=== PATIENT | female | born 1995 | race Caucasian/White ===

== ENCOUNTER → 2016-10-06 | Outpatient (REF) | payer OTHER | LOC: M LAB REF 16:15 | PROVIDERS: ATTEND Physician Assistant | DX: J01.10 Acute frontal sinusitis, unspecified (principal); J02.9 Acute pharyngitis, unspecified ==

== ENCOUNTER → 2018-04-18 | Outpatient (REF) | payer OTHER ==
[2018-04-18 14:17] LABS: BASO # 0.1 10^3/uL (0.0-0.2); BASO % 1.1 % (0.0-1.0); EOS # 0.1 10^3/uL (0.0-0.50); EOS % 2.6 % (0.0-3.0); HEMATOCRIT 40.2 % (36.0-47.0); HEMOGLOBIN 13.3 g/dl (12.0-15.5); LYMPH # 1.9 10^3/uL (1.5-6.5); LYMPH % 41.4 % (24.0-44.0); MEAN CORPUSCULAR HEMOGLOBIN 29.5 pg (27.0-33.0); MEAN CORPUSCULAR HGB CONC 33.1 g/dl (32.0-36.5); MEAN CORPUSCULAR VOLUME 89.1 fl (80.0-96.0); MONO # 0.4 10^3/uL (0.0-0.8); MONO % 9.6 % (0.0-5.0); NEUTROPHILS # 2.1 10^3/uL (1.8-7.7); NEUTROPHILS % 45.3 % (36.0-66.0); PLATELET COUNT, AUTOMATED 180 10^3/uL (150-450); RED BLOOD COUNT 4.51 10^6/uL (4.00-5.40); WHITE BLOOD COUNT 4.6 10^3/uL (4.0-10.0)
[2018-04-18 15:20] LABS: ALT/SGPT 19 U/L (12-78); BILIRUBIN,TOTAL 0.4 MG/DL (0.2-1.0); BLOOD UREA NITROGEN 13 MG/DL (7-18); CARBON DIOXIDE LEVEL 23 MEQ/L (21-32); CHLORIDE LEVEL 107 MEQ/L (98-107); CHOLESTEROL LEVEL 156 MG/DL (<200); CREATININE FOR GFR 0.94 MG/DL (0.55-1.30); FREE T4 0.97 NG/DL (0.76-1.46); GLOMERULAR FILTRATION RATE > 60.0 (>60); GLUCOSE, FASTING 88 MG/DL (70-100); HDL CHOLESTEROL 60 MG/DL (>40); LDL CHOLESTEROL 89 MG/DL (<100); NON-HDL-C 96 MG/DL; POTASSIUM SERUM 4.4 MEQ/L (3.5-5.1); SODIUM LEVEL 140 MEQ/L (136-145); TOTAL 25(OH) VITAMIN D 17.4 NG/ML (30.0-100.0); TOTAL PROTEIN 7.6 GM/DL (6.4-8.2); TRIGLYCERIDES LEVEL 37 MG/DL (<150)
== END ==
LOC: M SFHCSACK 10:42
PROVIDERS: ATTEND Physician Assistant
DX: J45.909 Unspecified asthma, uncomplicated (principal); Z13.220 Encounter for screening for lipoid disorders; Z13.29 Encounter for screening for other suspected endocrine disorder; Z13.21 Encounter for screening for nutritional disorder

== ENCOUNTER → 2018-05-09 | Outpatient (REF) | payer OTHER | LOC: M SFHCWAGY 10:01 | DX: Z12.4 Encounter for screening for malignant neoplasm of cervix (principal) ==

== ENCOUNTER → 2018-08-31 | Outpatient (REF) | payer OTHER ==
[2018-08-31 14:44] LABS: BASO # 0.1 10^3/uL (0.0-0.2); BASO % 0.9 % (0.0-1.0); EOS # 0.2 10^3/uL (0.0-0.50); HEMATOCRIT 39.6 % (36.0-47.0); HEMOGLOBIN 13.1 g/dl (12.0-15.5); LYMPH % 36.9 % (24.0-44.0); MEAN CORPUSCULAR HEMOGLOBIN 29.5 pg (27.0-33.0); MEAN CORPUSCULAR HGB CONC 33.1 g/dl (32.0-36.5); MEAN CORPUSCULAR VOLUME 89.2 fl (80.0-96.0); MONO # 0.5 10^3/uL (0.0-0.8); MONO % 9.8 % (0.0-5.0); NEUTROPHILS # 2.6 10^3/uL (1.8-7.7); NEUTROPHILS % 49.2 % (36.0-66.0); PLATELET COUNT, AUTOMATED 178 10^3/uL (150-450); RED BLOOD COUNT 4.44 10^6/uL (4.00-5.40); WHITE BLOOD COUNT 5.3 10^3/uL (4.0-10.0)
[2018-08-31 14:47] LABS: ALT/SGPT 26 U/L (12-78); BILIRUBIN,TOTAL 0.4 MG/DL (0.2-1.0); BLOOD UREA NITROGEN 12 MG/DL (7-18); CALCIUM LEVEL 8.3 MG/DL (8.5-10.1); CARBON DIOXIDE LEVEL 26 MEQ/L (21-32); CHLORIDE LEVEL 106 MEQ/L (98-107); CREATININE FOR GFR 0.87 MG/DL (0.55-1.30); GLOMERULAR FILTRATION RATE > 60.0 (>60); GLUCOSE, FASTING 81 MG/DL (70-100); POTASSIUM SERUM 4.4 MEQ/L (3.5-5.1); SODIUM LEVEL 139 MEQ/L (136-145); TOTAL PROTEIN 7.4 GM/DL (6.4-8.2)
== END ==
LOC: M SFHCSACK 09:44
PROVIDERS: ATTEND Physician Assistant
DX: E55.9 Vitamin D deficiency, unspecified (principal)

== ENCOUNTER → 2020-03-25 | Outpatient (CLI) | payer OTHER, SELFPAY ==
[2020-03-25 13:52] LABS: ALBUMIN 3.9 GM/DL (3.2-5.2); ALT/SGPT 17 U/L (12-78); BILIRUBIN,TOTAL 0.4 MG/DL (0.2-1.0); BLOOD UREA NITROGEN 9 MG/DL (7-18); CARBON DIOXIDE LEVEL 29 MEQ/L (21-32); CHLORIDE LEVEL 106 MEQ/L (98-107); CHOLESTEROL LEVEL 142 MG/DL (<200); CHOLESTEROL RISK RATIO 2.253 (<5); CREATININE FOR GFR 0.86 MG/DL (0.55-1.30); GLOMERULAR FILTRATION RATE > 60.0 (>60); GLUCOSE, FASTING 81 MG/DL (70-100); HDL CHOLESTEROL 63 MG/DL (>40); LDL CHOLESTEROL 72 MG/DL (<100); NON-HDL-C 79 MG/DL; SODIUM LEVEL 138 MEQ/L (136-145); TOTAL PROTEIN 7.3 GM/DL (6.4-8.2); TRIGLYCERIDES LEVEL 35 MG/DL (<150)
[2020-03-25 13:56] LABS: TOTAL 25(OH) VITAMIN D 58.6 NG/ML (30.0-100.0)
== END ==
LOC: M PLALAB 10:55
PROVIDERS: ATTEND Physician Assistant
DX: Z00.00 Encounter for general adult medical examination without abnormal findings (principal); E55.9 Vitamin D deficiency, unspecified; Z13.220 Encounter for screening for lipoid disorders

== ENCOUNTER → 2021-10-27 | Outpatient (CLI) | payer OTHER ==
[2021-10-27 13:32] LABS: HEMOGLOBIN A1c 5.2 %
[2021-10-27 13:44] LABS: BASO # 0.1 10^3/uL (0.0-0.2); BASO % 1.1 % (0.0-1.0); EOS # 0.1 10^3/uL (0.0-0.5); EOS % 2.9 % (0.0-3.0); HEMATOCRIT 39.4 % (36.0-47.0); HEMOGLOBIN 12.6 g/dl (12.0-15.5); LYMPH % 43.3 % (24.0-44.0); MEAN CORPUSCULAR HEMOGLOBIN 29.6 pg (27.0-33.0); MEAN CORPUSCULAR VOLUME 92.7 fl (80.0-96.0); MONO # 0.5 10^3/uL (0.0-0.8); MONO % 11.6 % (2.0-8.0); NEUTROPHILS # 1.9 10^3/uL (1.5-8.5); NEUTROPHILS % 40.9 % (36.0-66.0); PLATELET COUNT, AUTOMATED 183 10^3/uL (150-450); RED BLOOD COUNT 4.25 10^6/uL (4.00-5.40); WHITE BLOOD COUNT 4.6 10^3/uL (4.0-10.0)
[2021-10-27 14:04] LABS: ALBUMIN 3.8 GM/DL (3.2-5.2); ALT/SGPT 16 U/L (12-78); BILIRUBIN,TOTAL 0.3 MG/DL (0.2-1.0); BLOOD UREA NITROGEN 12 MG/DL (7-18); CARBON DIOXIDE LEVEL 27 MEQ/L (21-32); CHLORIDE LEVEL 109 MEQ/L (98-107); CHOLESTEROL LEVEL 141 MG/DL (<200); CHOLESTEROL RISK RATIO 2.274 (<5); CREATININE FOR GFR 0.83 MG/DL (0.55-1.30); FREE T4 0.99 NG/DL (0.76-1.46); GLOMERULAR FILTRATION RATE > 60.0 (>60); GLUCOSE, FASTING 81 MG/DL (70-100); HDL CHOLESTEROL 62 MG/DL (>40); LDL CHOLESTEROL 73 MG/DL (<100); NON-HDL-C 79 MG/DL; POTASSIUM SERUM 4.5 MEQ/L (3.5-5.1); SODIUM LEVEL 141 MEQ/L (136-145); TOTAL 25(OH) VITAMIN D 39.2 NG/ML (30.0-100.0); TOTAL PROTEIN 7.1 GM/DL (6.4-8.2); TRIGLYCERIDES LEVEL 31 MG/DL (<150)
== END ==
LOC: M PLALAB 09:39
PROVIDERS: ATTEND Physician Assistant Medical
DX: E55.9 Vitamin D deficiency, unspecified (principal)

== ENCOUNTER → 2022-05-07 | Outpatient (CLI) | payer OTHER ==
[2022-05-07 15:13] LABS: BASO % 0.7 % (0.0-1.0); EOS # 0.3 10^3/uL (0.0-0.5); EOS % 4.3 % (0.0-3.0); HEMOGLOBIN 12.4 g/dl (12.0-15.5); LYMPH # 1.9 10^3/uL (1.5-5.0); LYMPH % 32.3 % (24.0-44.0); MEAN CORPUSCULAR HEMOGLOBIN 28.8 pg (27.0-33.0); MEAN CORPUSCULAR HGB CONC 31.8 g/dl (32.0-36.5); MEAN CORPUSCULAR VOLUME 90.5 fl (80.0-96.0); MONO # 0.8 10^3/uL (0.0-0.8); MONO % 13.1 % (2.0-8.0); NEUTROPHILS # 2.9 10^3/uL (1.5-8.5); NEUTROPHILS % 49.3 % (36.0-66.0); PLATELET COUNT, AUTOMATED 200 10^3/uL (150-450); RED BLOOD COUNT 4.31 10^6/uL (4.00-5.40); WHITE BLOOD COUNT 5.9 10^3/uL (4.0-10.0)
[2022-05-07 16:48] LABS: ERYTHROCYTE SEDIMENTATION RATE 9 mm/hr (0-20)
== END ==
LOC: M PLALAB 09:44
PROVIDERS: ATTEND Physician Assistant Medical
DX: R05.3 Chronic cough (principal)

== ENCOUNTER → 2022-05-26 | Outpatient (REF) | payer OTHER | LOC: M PLALAB 14:49 | PROVIDERS: ATTEND Obstetrics & Gynecology | DX: Z01.419 Encounter for gynecological examination (general) (routine) without abnormal findings (principal) ==

== ENCOUNTER → 2022-08-24 | Outpatient (CLI) | payer OTHER ==
[2022-08-24 14:01] LABS: CALCIUM LEVEL 8.7 MG/DL (8.5-10.1)
[2022-08-24 14:05] LABS: PTH INTACT 69.4 PG/ML (18.5-88.0); TOTAL 25(OH) VITAMIN D 22.5 NG/ML (20.0-100.0)
== END ==
LOC: M PLALAB 11:10
PROVIDERS: ATTEND Physician Assistant Medical
DX: E55.9 Vitamin D deficiency, unspecified (principal)

== ENCOUNTER → 2022-11-16 | Outpatient (CLI) | payer OTHER ==
[2022-11-16 10:58] LABS: BASO # 0.1 10^3/uL (0.0-0.2); EOS # 0.2 10^3/uL (0.0-0.5); EOS % 3.1 % (0.0-3.0); HEMATOCRIT 37.2 % (36.0-47.0); HEMOGLOBIN 12.1 g/dl (12.0-15.5); LYMPH # 2.6 10^3/uL (1.5-5.0); LYMPH % 42.6 % (24.0-44.0); MEAN CORPUSCULAR HEMOGLOBIN 29.3 pg (27.0-33.0); MEAN CORPUSCULAR HGB CONC 32.5 g/dl (32.0-36.5); MEAN CORPUSCULAR VOLUME 90.1 fl (80.0-96.0); MONO # 0.6 10^3/uL (0.0-0.8); NEUTROPHILS # 2.7 10^3/uL (1.5-8.5); NEUTROPHILS % 43.1 % (36.0-66.0); PLATELET COUNT, AUTOMATED 171 10^3/uL (150-450); RED BLOOD COUNT 4.13 10^6/uL (4.00-5.40); WHITE BLOOD COUNT 6.1 10^3/uL (4.0-10.0)
[2022-11-16 11:40] LABS: HEMOGLOBIN A1c 4.9 % (4.0-6.0)
[2022-11-16 11:46] LABS: ALBUMIN 3.6 G/DL (3.2-5.2); ALKALINE PHOSPHATASE 41 U/L (46-116); ALT/SGPT 31 U/L (7.0-40); AST/SGOT 23 U/L (<34); BILIRUBIN,TOTAL 0.8 MG/DL (0.3-1.2); BLOOD UREA NITROGEN 12 MG/DL (9-23); CALCIUM LEVEL 8.6 MG/DL (8.5-10.1); CARBON DIOXIDE LEVEL 24 MMOL/L (20-31); CHLORIDE LEVEL 108 MMOL/L (98-107); CHOLESTEROL LEVEL 145 MG/DL (<200); CHOLESTEROL RISK RATIO 2.92 (<5); CREATININE FOR GFR 0.86 MG/DL (0.55-1.30); GLOMERULAR FILTRATION RATE > 60.0 (>60); GLUCOSE, FASTING 75 MG/DL (60-100); HDL CHOLESTEROL 49.5 MG/DL (>40); LDL CHOLESTEROL 86.9 MG/DL (<100); NON-HDL-C 95.5 MG/DL; PTH INTACT 53.1 PG/ML (18.5-88.0); SODIUM LEVEL 136 MMOL/L (136-145); TOTAL PROTEIN 6.5 G/DL (5.7-8.2); TRIGLYCERIDES LEVEL 43 MG/DL (<150)
== END ==
LOC: M PLALAB 07:27
PROVIDERS: ATTEND Physician Assistant Medical
DX: E55.9 Vitamin D deficiency, unspecified (principal)

== ENCOUNTER → 2022-11-20 | Outpatient (REF) | payer OTHER | LOC: M SFHCPLAZ 11:22 | PROVIDERS: ATTEND Physician Assistant Medical | DX: Z53.9 Procedure and treatment not carried out, unspecified reason (principal); E55.9 Vitamin D deficiency, unspecified ==

== ENCOUNTER → 2023-01-21 | Outpatient (CLI) | payer OTHER ==
[2023-01-21 11:04] LABS: BASO # 0.1 10^3/uL (0.0-0.2); BASO % 1.3 % (0.0-1.0); EOS # 0.2 10^3/uL (0.0-0.5); EOS % 3.4 % (0.0-3.0); HEMATOCRIT 40.2 % (36.0-47.0); LYMPH % 41.4 % (24.0-44.0); MEAN CORPUSCULAR HEMOGLOBIN 29.3 pg (27.0-33.0); MEAN CORPUSCULAR HGB CONC 32.3 g/dl (32.0-36.5); MEAN CORPUSCULAR VOLUME 90.7 fl (80.0-96.0); MONO # 0.5 10^3/uL (0.0-0.8); MONO % 10.7 % (2.0-8.0); NEUTROPHILS # 2.1 10^3/uL (1.5-8.5); PLATELET COUNT, AUTOMATED 171 10^3/uL (150-450); RED BLOOD COUNT 4.43 10^6/uL (4.00-5.40); WHITE BLOOD COUNT 4.8 10^3/uL (4.0-10.0)
[2023-01-21 11:29] LABS: FERRITIN 11.3 NG/ML (7.3-270.7)
[2023-01-22 14:09] LABS: H PYLORI SERUM QUANT IGM <9.0 units (0.0-8.9); H PYLORI SERUM QUANT IgG ABY 0.26 (0.00-0.79)
== END ==
LOC: M PLALAB 08:50
PROVIDERS: ATTEND Physician Assistant Medical
DX: R71.0 Precipitous drop in hematocrit (principal)

== ENCOUNTER → 2023-05-17 | Outpatient (CLI) | payer OTHER ==
[2023-05-17 14:15] LABS: CALCIUM LEVEL 8.8 MG/DL (8.5-10.1)
[2023-05-17 14:18] LABS: PTH INTACT 35.1 PG/ML (18.5-88.0)
[2023-05-17 14:20] LABS: TOTAL 25(OH) VITAMIN D 65.3 NG/ML (20.0-100.0)
== END ==
LOC: M PLALAB 10:17
PROVIDERS: ATTEND Physician Assistant Medical
DX: E55.9 Vitamin D deficiency, unspecified (principal)

== ENCOUNTER → 2023-05-24 | Outpatient (CLI) | payer OTHER ==
[2023-05-24 16:56] LABS: BASO # 0.1 10^3/uL (0.0-0.2); BASO % 1.2 % (0.0-1.0); EOS # 0.2 10^3/uL (0.0-0.5); EOS % 4.6 % (0.0-3.0); HEMATOCRIT 38.9 % (36.0-47.0); HEMOGLOBIN 12.6 g/dl (12.0-15.5); LYMPH # 2.1 10^3/uL (1.5-5.0); LYMPH % 49.4 % (24.0-44.0); MEAN CORPUSCULAR HEMOGLOBIN 29.5 pg (27.0-33.0); MEAN CORPUSCULAR HGB CONC 32.4 g/dl (32.0-36.5); MEAN CORPUSCULAR VOLUME 91.1 fl (80.0-96.0); MONO # 0.4 10^3/uL (0.0-0.8); MONO % 8.1 % (2.0-8.0); NEUTROPHILS # 1.6 10^3/uL (1.5-8.5); NEUTROPHILS % 36.5 % (36.0-66.0); PLATELET COUNT, AUTOMATED 172 10^3/uL (150-450); RED BLOOD COUNT 4.27 10^6/uL (4.00-5.40); WHITE BLOOD COUNT 4.3 10^3/uL (4.0-10.0)
[2023-05-24 17:03] LABS: FERRITIN 7.9 NG/ML (7.3-270.7)
== END ==
LOC: M PLALAB 12:22
PROVIDERS: ATTEND Physician Assistant Medical
DX: E61.1 Iron deficiency (principal)

== ENCOUNTER → 2024-05-15 | Outpatient (CLI) | payer BC ==
[2024-05-15 18:24] LABS: HEMOGLOBIN 12.1 g/dl (12.0-15.5); MEAN CORPUSCULAR HEMOGLOBIN 29.6 pg (27.0-33.0); MEAN CORPUSCULAR HGB CONC 33.6 g/dl (32.0-36.5); PLATELET COUNT, AUTOMATED 179 10^3/uL (150-450); RED BLOOD COUNT 4.09 10^6/uL (4.00-5.40); WHITE BLOOD COUNT 9.4 10^3/uL (4.0-10.0)
[2024-05-15 19:12] LABS: HIV 1&2 SCREEN NEGATIVE (NEGATIVE)
[2024-05-15 19:21] LABS: HEPATITIS C VIRUS ABY INDEX 0.02 INDEX (<0.8)
== END ==
LOC: M PLALAB 15:16
PROVIDERS: ATTEND Nurse Practitioner Family
DX: Z34.01 Encounter for supervision of normal first pregnancy, first trimester (principal)

== ENCOUNTER → 2024-05-15 | Outpatient (REF) | payer BC ==
[2024-05-15 21:48] LABS: GC DNA AMPLIFICATION NEGATIVE (NEGATIVE)
== END ==
LOC: M PLALAB 16:06
PROVIDERS: ATTEND Nurse Practitioner Family
DX: Z34.01 Encounter for supervision of normal first pregnancy, first trimester (principal)

== ENCOUNTER → 2024-05-31 | Outpatient (CLI) | payer BC ==
[2024-05-31 19:07] LABS: FERRITIN 26.5 NG/ML (7.3-270.7)
== END ==
LOC: M PLALAB 16:09
PROVIDERS: ATTEND Physician Assistant Medical
DX: Z36.89 Encounter for other specified antenatal screening (principal); Z3A.12 12 weeks gestation of pregnancy

== ENCOUNTER → 2024-07-27 | Outpatient (CLI) | payer BC | LOC: M WHC 14:43 | PROVIDERS: ATTEND Nurse Practitioner Family | DX: Z34.02 Encounter for supervision of normal first pregnancy, second trimester (principal) ==

== ENCOUNTER → 2024-09-01 | Outpatient (CLI) | payer BC | LOC: M WHC 14:48 | PROVIDERS: ATTEND Nurse Practitioner Family | DX: Z34.80 Encounter for supervision of other normal pregnancy, unspecified trimester (principal) ==

== ENCOUNTER → 2024-10-09 | Outpatient (CLI) | payer BC ==
[2024-10-09 17:32] LABS: BASO % 0.3 % (0.0-1.0); EOS # 0.1 10^3/uL (0.0-0.5); HEMATOCRIT 34.4 % (36.0-47.0); HEMOGLOBIN 11.3 g/dl (12.0-15.5); LYMPH # 1.3 10^3/uL (1.5-5.0); LYMPH % 12.9 % (24.0-44.0); MEAN CORPUSCULAR HEMOGLOBIN 28.8 pg (27.0-33.0); MEAN CORPUSCULAR HGB CONC 32.8 g/dl (32.0-36.5); MEAN CORPUSCULAR VOLUME 87.5 fl (80.0-96.0); MONO % 9.4 % (2.0-8.0); NEUTROPHILS # 7.7 10^3/uL (1.5-8.5); NEUTROPHILS % 75.9 % (36.0-66.0); PLATELET COUNT, AUTOMATED 190 10^3/uL (150-450); RED BLOOD COUNT 3.93 10^6/uL (4.00-5.40); WHITE BLOOD COUNT 10.1 10^3/uL (4.0-10.0)
[2024-10-09 18:17] LABS: ERYTHROCYTE SEDIMENTATION RATE 79 mm/hr (0-20)
== END ==
LOC: M PLALAB 14:28
PROVIDERS: ATTEND Physician Assistant Medical
DX: J01.90 Acute sinusitis, unspecified (principal)

== ENCOUNTER → 2025-02-15 | Outpatient (CLI) | payer BC ==
[2025-02-15 17:30] LABS: BASO # 0.1 10^3/uL (0.0-0.2); BASO % 1.0 % (0.0-1.0); EOS # 0.2 10^3/uL (0.0-0.5); EOS % 3.9 % (0.0-3.0); LYMPH # 2.0 10^3/uL (1.5-5.0); LYMPH % 34.3 % (24.0-44.0); MONO # 0.5 10^3/uL (0.0-0.8); MONO % 8.7 % (2.0-8.0); NEUTROPHILS # 3.0 10^3/uL (1.5-8.5); NEUTROPHILS % 51.9 % (36.0-66.0); PLATELET COUNT, AUTOMATED 210 10^3/uL (150-450)
[2025-02-15 17:58] LABS: ALT/SGPT 18 U/L (7.0-40); AST/SGOT 19 U/L (<34); CALCIUM LEVEL 9.5 MG/DL (8.5-10.1); CARBON DIOXIDE LEVEL 28 MMOL/L (20-31); CHLORIDE LEVEL 105 MMOL/L (98-107); CREATININE FOR GFR 0.78 MG/DL (0.55-1.30); GLOMERULAR FILTRATION RATE > 90.0 (>60); IRON (FE) 86 UG/DL (50-170); POTASSIUM SERUM 4.3 MMOL/L (3.5-5.1); SODIUM LEVEL 142 MMOL/L (136-145)
[2025-02-15 17:59] LABS: TOTAL 25(OH) VITAMIN D 56.1 NG/ML (20.0-100.0)
[2025-02-15 18:01] LABS: PTH INTACT 26.8 PG/ML (18.5-88.0)
[2025-02-15 18:38] LABS: ESTIMATED AVERAGE GLUCOSE 100.0 MG/DL (60-110)
== END ==
LOC: M PLALAB 14:12
PROVIDERS: ATTEND Physician Assistant Medical
DX: E61.1 Iron deficiency (principal); Z13.220 Encounter for screening for lipoid disorders; Z13.1 Encounter for screening for diabetes mellitus; E55.9 Vitamin D deficiency, unspecified

== ENCOUNTER → 2025-05-30 | Outpatient (REF) | payer BC | LOC: M PLALAB 15:03 | PROVIDERS: ATTEND Nurse Practitioner Family | DX: Z12.4 Encounter for screening for malignant neoplasm of cervix (principal) ==